=== PATIENT | male | born 1980 | race Caucasian/White ===

== ENCOUNTER 2024-03-20 16:18 | Outpatient (REF) | payer OTHER, SELFPAY ==
[2024-03-20 19:52] LABS: Abs Immature Grans 0.01 10^3/uL (0.0-0.06); Absolute Basophil Count 0.03 10^3/uL (0.0-0.2); Absolute Eosinophil Count 0.11 10^3/uL (0.0-0.7); Absolute Lymphocyte Count 2.28 10^3/uL (1.2-3.4); Absolute Monocyte Count 0.34 10^3/uL (0.1-0.8); Absolute Neutrophil Count 3.17 10^3/uL (1.2-6.7); Basophils % 0.5 %; Eosinophils % 1.9 %; HCT 44.1 % (40.0-50.0); Immature Grans % 0.2 %; Lymphocytes % 38.4 %; MCH 30.7 pg (27.0-33.0); MCV 90 fL (80-95); MPV 10.9 fL (8.0-11.0); Monocytes % 5.7 %; Neutrophils % 53.3 %; Platelet Count 192 10^3/uL (130-400); RBC 4.89 10^6/uL (4.36-5.78); RDW 12.9 % (11.8-14.1); RDW-SD 42.7 fL; WBC 5.94 10^3/uL (4.4-10.8)
[2024-03-20 20:16] LABS: ALT 23 U/L (16-63); AST 19 U/L (15-37); Albumin 4.3 g/dL (3.4-5.0); Alkaline Phosphatase 79 U/L (46-116); Anion Gap 8.3 mmol/L (3-11); BUN 12 mg/dL (7-18); Bilirubin, Total 0.43 mg/dL (0.2-1.0); CO2 31.7 mmol/L (21.0-32.0); CREATININE 1.4 mg/dL (0.70-1.30); Calcium 9.1 mg/dL (8.5-10.1); Chloride 105 mmol/L (98-107); Estimated GFR 63.96 (mL/min/1.73m2); Glucose 94 mg/dL (74-106); Potassium 4.2 mmol/L (3.5-5.1); Sodium 145 mmol/L (136-145); Total Protein 7.4 g/dL (6.4-8.2)
== END 2024-03-20 16:19 | disposition home or self-care (01) ==
LOC: NCHCN 16:18
PROVIDERS: PCP Nurse Practitioner Family; Visit Provider Nurse Practitioner Family
DX: R53.81 Other malaise (principal)
CPT/HCPCS: 80053; 85025